=== PATIENT | female | born 1960 | race African-American/Black ===

== ENCOUNTER → 2018-08-30 | Outpatient (CLI) | payer OTHER ==
[~2018-08-30] MED LIST: ADULT LOW DOSE81 MG PO
== END ==
LOC: CAT 09:05
DX: N28.1 Cyst of kidney, acquired (principal)

== ENCOUNTER → 2021-08-02 | Outpatient (CLI) | payer OTHER | LOC: CAT 08:59 | PROVIDERS: ATTEND Nurse Practitioner | DX: Z13.6 Encounter for screening for cardiovascular disorders (principal); I25.10 Atherosclerotic heart disease of native coronary artery without angina pectoris; E78.00 Pure hypercholesterolemia, unspecified ==

== ENCOUNTER → 2021-08-09 | Outpatient (CLI) | payer OTHER | LOC: BC 10:38 | PROVIDERS: ATTEND Nurse Practitioner | DX: Z12.31 Encounter for screening mammogram for malignant neoplasm of breast (principal); Z78.0 Asymptomatic menopausal state; N64.89 Other specified disorders of breast ==